=== PATIENT | male | born 1995 | race Two or more races ===

== ENCOUNTER 2018-07-14 08:49 | Outpatient (CLI) | payer OTHER | END 2018-07-14 08:55 | disposition home or self-care (01) | LOC: LAB 08:49 | DX: Z11.3 Encounter for screening for infections with a predominantly sexual mode of transmission (principal) ==

== ENCOUNTER 2020-02-23 08:00 | Outpatient (CLI) | payer OTHER | END 2020-02-23 15:00 | disposition home or self-care (01) | LOC: PPH VACUNA 08:00 | DX: Z23 Encounter for immunization (principal) ==

== ENCOUNTER 2020-08-02 15:56 | Outpatient (CLI) | payer OTHER | END 2020-08-02 15:59 | disposition home or self-care (01) | LOC: RAD 15:56 | PROVIDERS: ATTEND General Practice | DX: M54.5 Low back pain (principal) ==

== ENCOUNTER → 2020-11-06 06:24 | Outpatient (CLI) | payer OTHER | END | disposition home or self-care (01) | LOC: LAB 06:24 | PROVIDERS: ATTEND Emergency Medicine Pediatric Emergency Medicine | DX: D83.9 Common variable immunodeficiency, unspecified (principal) ==

== ENCOUNTER 2021-03-07 08:00 | Outpatient (CLI) | payer OTHER | END 2021-03-07 08:30 | disposition home or self-care (01) | LOC: PPH VACUNA 08:00 | PROVIDERS: ATTEND Emergency Medicine Pediatric Emergency Medicine | DX: Z23 Encounter for immunization (principal) ==

== ENCOUNTER 2021-10-11 07:40 | Outpatient (CLI) | payer OTHER | END 2021-10-11 07:45 | disposition home or self-care (01) | LOC: LAB 07:40 | PROVIDERS: ATTEND General Practice | DX: Z00.00 Encounter for general adult medical examination without abnormal findings (principal); E78.5 Hyperlipidemia, unspecified; E55.9 Vitamin D deficiency, unspecified; N39.0 Urinary tract infection, site not specified; R42 Dizziness and giddiness; R10.9 Unspecified abdominal pain ==

== ENCOUNTER 2021-11-27 05:53 | Emergency (ER) | payer OTHER ==
[~2021-11-27] VITALS: Ht 167.6 cm; Wt 74.8 kg
== END 2021-11-27 06:53 | disposition home or self-care (01) ==
LOC: ER 05:53
DX: Z77.21 Contact with and (suspected) exposure to potentially hazardous body fluids (principal)

== ENCOUNTER 2022-02-19 08:00 | Outpatient (CLI) | payer OTHER | END 2022-02-19 08:05 | disposition home or self-care (01) | LOC: PPH VACUNA 08:00 | PROVIDERS: ATTEND Emergency Medicine Pediatric Emergency Medicine | DX: Z23 Encounter for immunization (principal) ==

== ENCOUNTER → 2022-04-02 | Outpatient (CLI) | payer OTHER | END | disposition home or self-care (01) | LOC: LAB 07:14 | DX: I11.9 Hypertensive heart disease without heart failure (principal); E78.00 Pure hypercholesterolemia, unspecified; E03.8 Other specified hypothyroidism; R05.9 Cough, unspecified ==

== ENCOUNTER 2022-04-03 08:24 | Outpatient (CLI) | payer OTHER | END 2022-04-03 08:34 | disposition home or self-care (01) | LOC: TOM 08:24 | DX: K40.90 Unilateral inguinal hernia, without obstruction or gangrene, not specified as recurrent (principal) ==

== ENCOUNTER 2022-12-19 06:05 | Outpatient (CLI) | payer OTHER | END 2022-12-19 06:06 | disposition home or self-care (01) | LOC: LAB 06:05 | PROVIDERS: ATTEND Internal Medicine | DX: I11.9 Hypertensive heart disease without heart failure (principal); E78.2 Mixed hyperlipidemia; E03.8 Other specified hypothyroidism; B97.89 Other viral agents as the cause of diseases classified elsewhere; Z20.5 Contact with and (suspected) exposure to viral hepatitis; E55.9 Vitamin D deficiency, unspecified ==

== ENCOUNTER 2023-02-05 | Outpatient (CLI) | payer OTHER | END 2023-02-05 00:15 | disposition home or self-care (01) | LOC: PPH VACUNA | PROVIDERS: ATTEND Emergency Medicine Pediatric Emergency Medicine | DX: Z23 Encounter for immunization (principal) | CPT/HCPCS: 90686; G0008 ==

== ENCOUNTER 2023-02-17 14:50 | Outpatient (CLI) | payer OTHER | END 2023-02-17 14:54 | disposition home or self-care (01) | LOC: RAD 14:50 | PROVIDERS: ATTEND Internal Medicine | DX: R05.8 Other specified cough (principal) ==

== ENCOUNTER 2023-03-24 07:09 | Outpatient (CLI) | payer OTHER | END 2023-03-24 07:12 | disposition home or self-care (01) | LOC: RAD 07:09 | DX: M54.50 Low back pain, unspecified (principal) ==

== ENCOUNTER 2024-02-09 16:22 | Outpatient (CLI) | payer OTHER | END 2024-02-09 16:26 | disposition home or self-care (01) | LOC: LAB 16:22 | PROVIDERS: ATTEND Preventive Medicine Occupational Medicine | DX: B19.10 Unspecified viral hepatitis B without hepatic coma (principal) ==

== ENCOUNTER 2024-03-10 03:10 | Outpatient (CLI) | payer OTHER | END 2024-03-10 04:00 | disposition home or self-care (01) | LOC: PPH VACUNA 03:10 | PROVIDERS: ATTEND Emergency Medicine Pediatric Emergency Medicine | DX: Z23 Encounter for immunization (principal) ==

== ENCOUNTER 2024-03-18 15:22 | Outpatient (CLI) | payer OTHER | END 2024-03-18 15:28 | disposition home or self-care (01) | LOC: RAD 15:22 | DX: J01.90 Acute sinusitis, unspecified (principal); M54.50 Low back pain, unspecified; M54.9 Dorsalgia, unspecified ==

== ENCOUNTER → 2024-10-17 07:32 | Outpatient (CLI) | payer OTHER ==
[2024-10-17 08:17] LABS: URINE APPEARANCE Clear; URINE BILIRRUBIN Negative (NEGATIVE); URINE BLOOD Negative; URINE COLOR Yellow; URINE GLUCOSE Negative (NEGATIVE); URINE KETONE Negative (NEGATIVE); URINE LEUKOCYTE Negative; URINE NITRATE Negative; URINE PROTEIN Negative (NEGATIVE)
[2024-10-17 08:23] LABS: URINE RBC 3.8 uL (0.0-20.8)
[2024-10-17 08:33] LABS: EOS % 4.1 % (0.7-7.0); HEMATOCRIT 40.9 % (40.1-51.0); HEMOGLOBIN 14.4 g/dL (13.7-17.5); LYMPH # 1.77 (1.18-3.74); LYMPH % 36.3 % (19.3-53.1); MEAN CORPUSCULAR HEMOGLOBIN 29.4 pg (25.6-32.2); MONO # 0.39 (0.24-0.82); NEUT # 2.46 (1.56-6.13); NEUT % 50.4 % (34.0-71.1); PLATELET COUNT 209 K/uL (163-369); RED BLOOD COUNT 4.89 M/uL (4.63-6.08); RED CELL DISTRIBUTION WIDTH 12.8 % (11.6-14.4)
[2024-10-17 08:37] LABS: URINE BACTERIA 2.4 uL (0.0-1933); URINE EPITHELIAL CELLS 0.1 uL (0.0-38.8); URINE WBC 0.4 uL (0.0-23.2)
== END | disposition home or self-care (01) ==
LOC: LAB 07:32
PROVIDERS: ATTEND Internal Medicine
DX: E11.9 Type 2 diabetes mellitus without complications (principal); E78.2 Mixed hyperlipidemia; E03.8 Other specified hypothyroidism

== ENCOUNTER 2024-10-26 07:21 | Outpatient (CLI) | payer OTHER ==
[2024-10-26 08:19] LABS: BILIRUBIN TOTAL 0.46 mg/dL (0.3-1.2); CALCIUM 8.9 mg/dL (8.5-10.1); CHOL HDL RATIO 3.1 (0-5.0); CREATININE SERUM 0.82 mg/dL (0.70-1.30); GFR 109.58; GLOBULINA 3.6 G/DL (2.4-3.5); POTASSIUM 4.02 mEq/L (3.5-5.1); TOTAL PROTEIN 7.6 gm/dL (6.4-8.2); TSH 1.91 uIU/mL (0.358-3.74)
== END 2024-10-26 07:25 | disposition home or self-care (01) ==
LOC: LAB 07:21
PROVIDERS: ATTEND Internal Medicine
DX: I11.9 Hypertensive heart disease without heart failure (principal); E78.2 Mixed hyperlipidemia; E03.8 Other specified hypothyroidism

== ENCOUNTER 2025-03-22 14:54 | Outpatient (CLI) | payer OTHER ==
[~2025-03-22 14:54] MED LIST: DICLOFENAC POTA50 MG PO; METHOCARBAMOL500 MG PO
== END 2025-03-22 15:04 | disposition home or self-care (01) ==
LOC: PPH VACUNA 14:54
PROVIDERS: ATTEND Emergency Medicine Pediatric Emergency Medicine
DX: Z23 Encounter for immunization (principal)